=== PATIENT | male | born 1995 | race African-American/Black ===

== ENCOUNTER 2017-08-20 14:01 | Emergency (ER) | payer SELFPAY ==
[~2017-08-20] VITALS: Ht 160 cm; Wt 49.9 kg
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
[2017-08-20 14:28] VITALS: BP 60/56
[2017-08-20] MEDS ORDERED: Acetaminophen 500mg (ES) tab ORAL ONE (14:30)
[2017-08-20] MEDS ORDERED: Norco 5mg/325mg tab ORAL ONE (14:30)
[2017-08-20] MEDS ORDERED: Methocarbamol 500mg tab ORAL ONE ×2 (14:30)
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
[2017-08-20 17:05] VITALS: BP 111/70
[2017-08-20] MEDS ORDERED: COLACE100 MG ORAL (17:37)
[2017-08-20 18:00] VITALS: BP 111/70
== END 2017-08-20 18:00 | disposition home or self-care (01) ==
LOC: EMR 15:15
DX: T18.5XXA Foreign body in anus and rectum, initial encounter (principal); X58.XXXA Exposure to other specified factors, initial encounter; Y92.9 Unspecified place or not applicable
CPT/HCPCS: 74018; 99284